=== PATIENT | male | born 1975 | race Caucasian/White ===

== ENCOUNTER 2020-06-08 21:57 | Emergency (ER) | payer SELFPAY ==
[~2020-06-08] VITALS: Ht 175.3 cm; Wt 137.0 kg
[~2020-06-08 21:57] MED LIST: IBP800T PO; PENI250T4 PO
--- NOTE | 2020-06-08 22:28 | ED General ---
General Chief Complaint: Cough/Cold/Flu Symptoms Stated Complaint: COUGH,SINUS Nursing Triage Note: AMBULATES TO ROOM #9 WITH C/O COUGH ET SINUS INFECTION. STATES X8WKS AGO AFTER CHOKING ON ALMONDS HE BEGAN TO EXPERIENCE DRY COUGH THAT HE CONTINUES TO EXPERIENCE TO THIS DAY. STATES X4 DAYS AGO HE WAS DIAGNOSED WITH A SINUS INFECTION ET PRESCRIBED ABX ET ALBUTEROL IH. EXPRESSES CONCERN REGARDING PERSISTANT COUGH X8 WKS. REFUSES NASAL SWAB FOR COVID-19 ON INFLUENZA. Nursing Sepsis Screen: No Definite Risk Source of Information: Patient Exam Limitations: No Limitations History of Present Illness Date Seen by Provider: Jun 08, 2020 Time Seen by Provider: 22:07 Initial Comments Here with report of cough that has been going on for 8 weeks. Diagnosed with pneumonia twice. Onset after choking a little bit on some almonds 8 weeks ago. He has been on antibiotics a few times as well as steroids twice. Completed steroids 4 days ago. Since then he has had increased sinus congestion and cough and tonight was worried more. Following with his doctor at the clinic and is due to follow-up with him again next week for further studies including possibility of a CAT scan. Denies fevers, nausea, vomiting or diarrhea. Denies dysuria or rash. Denies contact with COVID-19 and states he got tested 2 weeks ago and that was negative. 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 He declines COVID-19 evaluation or influenza evaluation because he states he cannot take the nasal swabs. Timing/Duration: Constant, Other (8 weeks) Severity: Moderate Associated Systoms: Cough; No Fever/Chills, No Headaches, No Nausea/Vomiting, No Shortness of Air, No Weakness Allergies and Home Medications Allergies Coded Allergies: calcium carbonate (Verified Allergy, Intermediate, HIVES, 05/03/12) Cephalexin Monohydrate (Verified Allergy, Unknown, 06/08/20) Penicillins (Verified Allergy, Unknown, 06/08/20) acetaminophen (Verified Allergy, Unknown, 06/08/20) azithromycin (Verified Allergy, Unknown, 06/08/20) benzocaine (Verified Allergy, Unknown, 06/08/20) lidocaine (Verified Allergy, Unknown, 06/08/20) mupirocin (Verified Allergy, Unknown, 06/08/20) mupirocin calcium (Verified Allergy, Unknown, 06/08/20) Home Medications Ibuprofen 800 Mg Tab, 800 MG PO TID PRN, (Reported) Penicillin V Potassium 250 Mg Tablet, 500 MG PO Q6HR, (Reported) Patient Home Medication List Home Medication List Reviewed: Yes Review of Systems Review of Systems Constitutional: No chills, No fever EENTM: nose congestion; No nose pain, No throat pain, No throat swelling Respiratory: cough; No short of breath Cardiovascular: No chest pain, No edema Gastrointestinal: No abdominal pain, No nausea, No vomiting Genitourinary: no symptoms reported Musculoskeletal: no symptoms reported All Other Systems Reviewed Negative Unless Noted: Yes Past Ftrqtye-Aoooxp-Sepdis Hx Past Med/Social Hx: Reviewed Nursing Past Med/Soc Hx Patient Social History Alcohol Use: Occasionally Uses Smoking Status: Never a Smoker Recent Infectious Disease Expo: No Past Medical History Surgeries: Yes Orthopedic (Knee and shoulder) Respiratory: Yes Chronic Bronchitis Cardiac: No Neurological: No Reproductive Disorders: No Sexually Transmitted Disease: No HIV/AIDS: No Gastrointestinal: No Musculoskeletal: No Endocrine: No Adverse Reaction/Blood Tranf: No Family Medical History Reviewed Nursing Family Hx Diabetes Physical Exam-Suspected Sepsis Physical Exam Vital Signs Vital Signs - First Documented 06/08/20 22:07 Temp 36.8 Pulse 90 Resp 20 B/P (MAP) 161/109 (126) Pulse Ox 98 O2 Delivery Room Air Capillary Refill : Less Than 3 Seconds Blood Pressure Mean: 126 Height, Weight, BMI Height: '" Weight: 360lbs. oz. [id number]; 44.00 BMI Method:Stated General Appearance: No Apparent Distress, WD/WN, Obese HEENT: PERRL/EOMI, Pharynx Normal, Other (Moderate bilateral nasal congestion with clear rhinorrhea) Neck: Non Tender, Supple Respiratory: Lungs Clear, Normal Breath Sounds Cardiovascular: No Murmur, Tachycardia Gastrointestinal: Non Tender, Soft Back: Normal Inspection, No CVA Tenderness, No Vertebral Tenderness Extremity: Normal Range of Motion, Non Tender, No Calf Tenderness, No Pedal Edema Neurologic/Psychiatric: Alert, Oriented x3 Skin: normal color, warm/dry Focused Exam Lactate Level 06/08/20 22:30: Lactic Acid Level 1.57 Lactic Acid Level Laboratory Tests Test 06/08/20 22:30 Lactic Acid Level 1.57 MMOL/L (0.50-2.00) Progress/Results/Core Measures Suspected Sepsis Recent Fever Within 48 Hours: No Infection Criteria Present: Documented Infection New/Unexplained Altered Menta: No Sepsis Screen: No Definite Risk SIRS Temperature: Pulse: 90 Respiratory Rate: 20 Laboratory Tests 06/08/20 22:30: White Blood Count 11.7H Blood Pressure 161 /109 Mean: 126 06/08/20 22:30: Lactic Acid Level 1.57 Laboratory Tests 06/08/20 22:30: Creatinine 1.00, INR Comment 0.9, Platelet Count 216, Total Bilirubin 0.4 Results/Orders Lab Results Laboratory Tests Test 06/08/20 22:30 Range/Units White Blood Count 11.7 H 4.3-11.0 10^3/uL Red Blood Count 6.17 H 4.30-5.52 10^6/uL Hemoglobin 16.2 13.3-17.7 g/dL Hematocrit 49 40-54 % Mean Corpuscular Volume 79 L 80-99 fL Mean Corpuscular Hemoglobin 26 25-34 pg Mean Corpuscular Hemoglobin Concent 33 32-36 g/dL Red Cell Distribution Width 13.2 10.0-14.5 % Platelet Count 216 130-400 10^3/uL Mean Platelet Volume 11.2 9.0-12.2 fL Immature Granulocyte % (Auto) 1 % Neutrophils (%) (Auto) 72 42-75 % Lymphocytes (%) (Auto) 21 12-44 % Monocytes (%) (Auto) 6 0-12 % Eosinophils (%) (Auto) 1 0-10 % Basophils (%) (Auto) 0 0-10 % Neutrophils # (Auto) 8.4 H 1.8-7.8 10^3/uL Lymphocytes # (Auto) 2.5 1.0-4.0 10^3/uL Monocytes # (Auto) 0.7 0.0-1.0 10^3/uL Eosinophils # (Auto) 0.1 0.0-0.3 10^3/uL Basophils # (Auto) 0.0 0.0-0.1 10^3/uL Immature Granulocyte # (Auto) 0.1 0.0-0.1 10^3/uL Prothrombin Time 12.6 12.2-14.7 SEC INR Comment 0.9 0.8-1.4 Activated Partial Thromboplast Time 27 24-35 SEC D-Dimer 0.36 0.00-0.49 UG/ML Sodium Level 130 L 135-145 MMOL/L Potassium Level 4.4 3.6-5.0 MMOL/L Chloride Level 97 L 98-107 MMOL/L Carbon Dioxide Level 21 21-32 MMOL/L Anion Gap 12 5-14 MMOL/L Blood Urea Nitrogen 10 7-18 MG/DL Creatinine 1.00 0.60-1.30 MG/DL Estimat Glomerular Filtration Rate > 60 BUN/Creatinine Ratio 10 Glucose Level 470 *H 70-105 MG/DL Lactic Acid Level 1.57 0.50-2.00 MMOL/L Calcium Level 9.2 8.5-10.1 MG/DL Corrected Calcium 9.3 8.5-10.1 MG/DL Total Bilirubin 0.4 0.1-1.0 MG/DL Aspartate Amino Transf (AST/SGOT) 13 5-34 U/L Alanine Aminotransferase (ALT/SGPT) 21 0-55 U/L Alkaline Phosphatase 87 40-136 U/L C-Reactive Protein High Sensitivity 1.82 H 0.00-0.50 MG/DL Total Protein 8.0 6.4-8.2 GM/DL Albumin 3.9 3.2-4.5 GM/DL Procalcitonin 0.04 <0.10 NG/ML My Orders Orders - RANJITH CASTAÑEDA MD Cbc With Automated Diff (06/08/20 22:20) Comprehensive Metabolic Panel (06/08/20 22:20) Blood Culture (06/08/20 22:20) Sputum Culture (06/08/20 22:20) Protime With Inr (06/08/20:20) Partial Thromboplastin Time (06/08/20:20) Chest 1 View, Ap/Pa Only (06/08/20 22:20) Ed Iv/Invasive Line Start (06/08/20 22:20) Vital Signs Adult Sepsis Patie Q15M (06/08/20 22:20) O2 (06/08/20 22:20) Remove Rings In Anticipation O (06/08/20 22:20) Lactic Acid Analyzer (06/08/20 22:20) Fibrin Degradation Products (06/08/20 22:20) Procalcitonin (Pct) (06/08/20 22:20) Hs C Reactive Protein (06/08/20 22:20) Ns Iv 1000 Ml (Sodium Chloride 0.9%) (06/09/20 00:00) Ct Chest W (06/09/20 00:01) Iohexol Injection (Omnipaque 350 Mg/Ml 1 (06/09/20 00:45) Received Contrast (Hold Metformin- Contr (06/09/20 00:45) Sodium Chloride Flush (Catheter Flush Sy (06/09/20 00:45) Ns (Ivpb) (Sodium Chloride 0.9% Ivpb Bag (06/09/20 00:45) Medications Given in ED Current Medications Medications Dose Ordered Sig/Janae Route Start Time Stop Time Status Last Admin Dose Admin Iohexol 100 ml ONCE ONCE IV 06/09/20 00:45 06/09/20 00:47 DC 06/09/20 00:46 75 ML Sodium Chloride 10 ml NEEDED PRN IV 06/09/20 00:45 06/09/20 00:47 10 ML Sodium Chloride 100 ml ONCE ONCE IV 06/09/20 00:45 06/09/20 00:47 DC 06/09/20 00:46 80 ML Sodium Chloride 1,000 ml @ 0 mls/hr Q0M ONCE IV 06/09/20 00:00 06/09/20 00:01 DC 06/09/20 01:11 0 MLS/HR Vital Signs/I&O 06/08/20 06/08/20 22:07 22:30 Temp 36.8 Pulse 90 Resp 20 B/P (MAP) 161/109 (126) Pulse Ox 98 O2 Delivery Room Air Room Air Capillary Refill : Less Than 3 Seconds Blood Pressure Mean: 126 Progress Note : Progress Note Seen and evaluated. We will initiate sepsis work-up minus UA studies as those are not needed on this patient. Patient refused influenza or COVID-19 testing. We will check CRP, D-dimer and procalcitonin for evaluation for pneumonia, pulmonary embolism and for other serious bacterial or viral infections. We will need to maintain patient in precautions since he does not want Covid testing. Monitor patient. 2348: Chest x-ray does show right lower lobe infiltrate. This is a regular appearing. We will get CT chest with contrast. Normal saline to follow. Monitor patient. 0130: CT complete and results noted. IV fluids are running. I have talked at length with the patient regarding several factors. First, the patient has findings of diabetes. Apparently this is known to the patient but he has not taken his Metformin. That was from information from the brother. Patient believes it may be related to steroid use. I believe this is actually diabetes and told him so and that he will need to take his medication. He was instructed in follow-up and has appointment on (tomorrow). Second, he has rather significant infiltrate noted on CT scan. This may be resolving pneumonia given the course and evaluation of the labs with low procalcitonin. If not improving over time, concerns for atypical type pneumonia would be had. He is currently on moxifloxacin which is an appropriate antibiotic. He is completing that course and has follow-up again tomorrow for this as well. He is suffering from some upper respiratory symptoms since being on steroids which may be allergy related. He will initiate appropriate allergy therapy and see if that helps improve his symptoms. I did offer admission which the patient has declined and would prefer to go home. This is reasonable given his labs but he does have to discuss this in follow-up. I will send a copy of the chart to the clinic for that appointment as well. Discharged home with return precautions. Patient verbalized understanding of instructions and agreement with plan. Diagnostic Imaging Diagonstic Imaging: Xray Plain Films/CT/US/NM/MRI: chest Comments Right lower lobe infiltrate Reviewed: Reviewed by Me Diagonstic Imaging: CT Plain Films/CT/US/NM/MRI: chest Comments Focal right lower lobe bronchiectasis with peribronchial thickening and a peripheral infiltrate/pneumonia Departure Impression Primary Impression: Right lower lobe pneumonia Qualified Codes: J18.9 - Pneumonia, unspecified organism Additional Impressions: Hyperglycemia due to type 2 diabetes mellitus Qualified Codes: E11.65 - Type 2 diabetes mellitus with hyperglycemia Seasonal allergies Disposition: 01 HOME, SELF-CARE Condition: Stable Departure-Patient Inst. Decision time for Depature: 01:34 Referrals: NO,LOCAL PHYSICIAN (PCP/Family) Primary Care Physician Patient Instructions: Type 2 Diabetes, Hyperglycemia, Adult (DC), Pneumonia, Adult (DC), Seasonal Allergies (DC) Add. Discharge Instructions: All discharge instructions reviewed with patient and/or family. Voiced understanding. You may take [id number] Claritin or the generic loratadine daily per package directions. You may use Afrin nasal spray or the generic, 12-hour relief, 2 sprays to each nostril twice daily for 3 days only and then stop. Do not take more than 3 days. Continue your antibiotics as prescribed. It is essential that you keep your follow-up appointment on as scheduled and discuss both the pneumonia and the diabetes. A copy of the chart was sent to the clinic to assist in evaluation. Drink plenty of fluids and avoid sugars in your diet. Return for worse pain, fever, vomiting, weakness, breathing problems or other concerns as needed. Copy Copies To 1: VINICIO BOOKER MD, TIMOTHY D MD Jun 08, 2020 22:28
[2020-06-08 22:45] LABS: BASOPHILS % (AUTO) 0 % (0-10); EOSINOPHILS # (AUTO) 0.1 10^3/uL (0.0-0.3); EOSINOPHILS % (AUTO) 1 % (0-10); HEMATOCRIT 49 % (40-54); HEMOGLOBIN 16.2 g/dL (13.3-17.7); LYMPHOCYTES # (AUTO) 2.5 10^3/uL (1.0-4.0); LYMPHOCYTES % (AUTO) 21 % (12-44); MEAN CORPUSCULAR HEMOGLOBIN 26 pg (25-34); MEAN CORPUSCULAR HGB CONC 33 g/dL (32-36); MEAN CORPUSCULAR VOLUME 79 fL (80-99); MEAN PLATELET VOLUME 11.2 fL (9.0-12.2); MONOCYTES # (AUTO) 0.7 10^3/uL (0.0-1.0); MONOCYTES % (AUTO) 6 % (0-12); NEUTROPHILS # (AUTO) 8.4 10^3/uL (1.8-7.8); NEUTROPHILS % (AUTO) 72 % (42-75); PLATELET COUNT 216 10^3/uL (130-400); WHITE BLOOD COUNT 11.7 10^3/uL (4.3-11.0)
[2020-06-08 23:09] LABS: ALBUMIN 3.9 GM/DL (3.2-4.5); CHLORIDE 97 MMOL/L (98-107); POTASSIUM 4.4 MMOL/L (3.6-5.0); SODIUM 130 MMOL/L (135-145)
[2020-06-08 23:10] LABS: CALCIUM 9.2 MG/DL (8.5-10.1)
[2020-06-08 23:12] LABS: FIBRIN DEGRADATION PRODUCTS 0.36 UG/ML (0.00-0.49); INR 0.9 (0.8-1.4); PROTHROMBIN TIME PATIENT 12.6 SEC (12.2-14.7)
[2020-06-08 23:13] LABS: BILIRUBIN,TOTAL 0.4 MG/DL (0.1-1.0); CARBON DIOXIDE 21 MMOL/L (21-32)
[2020-06-08 23:15] LABS: ALKALINE PHOSPHATASE 87 U/L (40-136)
[2020-06-08 23:16] LABS: GFR ESTIMATED > 60; GLUCOSE 470 MG/DL (70-105)
[2020-06-08 23:17] LABS: BUN/CREATININE RATIO 10
[2020-06-08 23:18] LABS: ALANINE AMINOTRANSFERASE 21 U/L (0-55)
[2020-06-09] MEDS ORDERED: NS IV 1000 ML 1,000 ML IV ONE
[2020-06-09] MEDS ORDERED: NS 100 ML (IVPB) BAG IV ONE (00:45)
[2020-06-09] MEDS ORDERED: IOHEXOL 350 MG/ML 100 ML (OMNIPAQUE 350) VIAL IV ONE (00:45)
[2020-06-09] MEDS ORDERED: CATHETER FLUSH 10 ML SYR IV PRN (00:45)
[2020-06-09] MEDS ORDERED: HOLD METFORMIN - RECEIVED CONTRAST 20 ML VIAL IV SCH (00:45)
[2020-06-09 01:50] VITALS: BP 133/85
--- NOTE | 2020-06-09 07:52 | Diagnostic Imaging Report ---
PROCEDURE: CT chest with contrast only. TECHNIQUE: Multiple contiguous axial images were obtained through the chest after administration of intravenous contrast. Auto Exposure Controls were utilized during the CT exam to meet ALARA standards for radiation dose reduction. INDICATION: Cough for 8 weeks. Abnormal chest x-ray with right lower lobe atelectasis and/or infiltrate There is right basilar atelectasis and infiltrate. The right upper lobe and the left lung are clear. There is no effusion or pneumothorax. There is no mediastinal mass or hemorrhage. There is no aortic aneurysm or dissection. There is no pulmonary embolus. IMPRESSION: Right lower lobe pneumonia with some volume loss. There is no pulmonary embolus. Dictated by: Dictated on workstation # [id number]
--- NOTE | 2020-06-09 08:27 | Diagnostic Imaging Report ---
INDICATION: Dry cough and sepsis. TIME OF EXAM: 10:59 PM No prior studies are available for comparison. FINDINGS: Heart size is normal. There is some infiltrate or atelectasis in the right lung base. Otherwise lungs are clear. No effusion or pneumothorax is seen. IMPRESSION: Right basilar infiltrate or atelectasis. Dictated by: Dictated on workstation # [id number]
== END 2020-06-09 01:50 | disposition home or self-care (01) ==
LOC: EDUNIT# 21:57 → ER 21:59
DX: J18.1 Lobar pneumonia, unspecified organism (principal); E11.65 Type 2 diabetes mellitus with hyperglycemia; J30.2 Other seasonal allergic rhinitis; I10 Essential (primary) hypertension; E66.9 Obesity, unspecified; Z68.41 Body mass index [BMI] 40.0-44.9, adult; Z88.0 Allergy status to penicillin; Z88.1 Allergy status to other antibiotic agents; Z88.8 Allergy status to other drugs, medicaments and biological substances; Z83.3 Family history of diabetes mellitus
CPT/HCPCS: 36415; 71045; 71260; 80053; 82962; 83605; 84145; 85025; 85379; 85610; 85730; 86141; 87040

== ENCOUNTER 2020-06-11 15:29 | Observation (INO) | payer SELFPAY ==
[~2020-06-11] VITALS: Ht 175.3 cm; Wt 13.5 kg
[2020-06-11 16:48] LABS: BASOPHILS % (AUTO) 0 % (0-10); EOSINOPHILS # (AUTO) 0.1 10^3/uL (0.0-0.3); EOSINOPHILS % (AUTO) 1 % (0-10); HEMATOCRIT 51 % (40-54); HEMOGLOBIN 16.8 g/dL (13.3-17.7); LYMPHOCYTES # (AUTO) 1.7 10^3/uL (1.0-4.0); LYMPHOCYTES % (AUTO) 11 % (12-44); MEAN CORPUSCULAR HEMOGLOBIN 27 pg (25-34); MEAN CORPUSCULAR HGB CONC 33 g/dL (32-36); MEAN CORPUSCULAR VOLUME 80 fL (80-99); MEAN PLATELET VOLUME 10.9 fL (9.0-12.2); MONOCYTES # (AUTO) 0.9 10^3/uL (0.0-1.0); MONOCYTES % (AUTO) 6 % (0-12); NEUTROPHILS # (AUTO) 12.8 10^3/uL (1.8-7.8); NEUTROPHILS % (AUTO) 82 % (42-75); PLATELET COUNT 248 10^3/uL (130-400); WHITE BLOOD COUNT 15.6 10^3/uL (4.3-11.0)
[2020-06-11 16:52] LABS: CHLORIDE 98 MMOL/L (98-107); POTASSIUM 4.2 MMOL/L (3.6-5.0)
[2020-06-11 16:53] LABS: SODIUM 135 MMOL/L (135-145)
[2020-06-11 16:54] LABS: CALCIUM 9.6 MG/DL (8.5-10.1)
[2020-06-11 16:55] LABS: GLUCOSE 359 MG/DL (70-105); TOTAL PROTEIN 8.5 GM/DL (6.4-8.2)
[2020-06-11 16:56] LABS: CARBON DIOXIDE 21 MMOL/L (21-32)
[2020-06-11 16:57] LABS: BILIRUBIN,TOTAL 0.5 MG/DL (0.1-1.0)
[2020-06-11 16:58] LABS: ALKALINE PHOSPHATASE 83 U/L (40-136)
[2020-06-11 16:59] LABS: CREATININE SERUM 1.04 MG/DL (0.60-1.30); GFR ESTIMATED > 60
[2020-06-11 17:00] LABS: BUN/CREATININE RATIO 13
[2020-06-11 17:02] LABS: ALANINE AMINOTRANSFERASE 32 U/L (0-55)
[2020-06-11 17:08] LABS: BAND NEUTROPHILS 0 %; BASOPHILS % (MANUAL) 0 %; EOSINOPHILS % (MANUAL) 0 %; LYMPHOCYTES % (MANUAL) 12 %; MONOCYTES % (MANUAL) 6 %; NEUTROPHILS % (MANUAL) 82 %; RBC MORPH NORMAL
--- NOTE | 2020-06-11 17:21 | Diagnostic Imaging Report ---
EXAMINATION: Chest 1 view. HISTORY: Sepsis. Cough. Pneumonia 8 weeks ago. COMPARISON: 06/08/2020. FINDINGS: The lung volumes are normal. There has been interval decrease in patchy opacities in the right lung base. No large pleural effusion or pneumothorax is seen. The cardiomediastinal silhouette is normal in size and contour. No acute osseous abnormality is seen. IMPRESSION: Improving patchy opacities in the right lung base, likely representing improving pneumonia. Dictated by: Dictated on workstation # [id number]
[2020-06-11] MEDS ORDERED: MEROPENEM 1,000 MG in WATER (STERILE) FOR INJECTION 20 ML IV ONE (17:45)
[2020-06-11] MEDS ORDERED: LACTATED RINGERS 1,000 ML IV ONE (18:00)
--- NOTE | 2020-06-11 18:50 | ED General ---
General Chief Complaint: Cough/Cold/Flu Symptoms Stated Complaint: COUGH Nursing Triage Note: pt presents to ER today for repeat visit (was seen sunday) for prolonged cough and diagnosis of pneumonia 8 weeks ago. Pt is a pt at [facility] and has had out pt xrays, cts, and a pervious "spit covid test". Pt was seen in this ER 3 days ago (06/08/2020) when his illness got worse. Provider wanted to covid test him and admit pt but pt refused. Pt returns today because he has changed his mind about wanting to be admitted, states he "is tired of being sick and just wants to get better" Nursing Sepsis Screen: No Definite Risk Source of Information: Patient, Old Records Exam Limitations: No Limitations History of Present Illness Date Seen by Provider: Jun 11, 2020 Time Seen by Provider: 16:10 Initial Comments This 45-year-old gentleman presents to the emergency room with complaints of persistent cough for about 2 months. He states this started when he choked on a handful of almonds. He has been on multiple rounds of antibiotics, steroids, and inhaled treatments, but symptoms persist. He was last seen in this ER on June 08 and was offered admission. He declined at that time. He denies fever but still has persistent cough and now has worsening congestion and nasal drainage. He consents to a Covid screening today. He appeared to have a right lower lobe infiltrate on imaging on the . Allergies and Home Medications Allergies Coded Allergies: calcium carbonate (Verified Allergy, Intermediate, HIVES, 05/03/12) Cephalexin Monohydrate (Verified Allergy, Unknown, 06/08/20) Penicillins (Verified Allergy, Unknown, 06/08/20) acetaminophen (Verified Allergy, Unknown, 06/08/20) azithromycin (Verified Allergy, Unknown, 06/08/20) benzocaine (Verified Allergy, Unknown, 06/08/20) lidocaine (Verified Allergy, Unknown, 06/08/20) mupirocin (Verified Allergy, Unknown, 06/08/20) mupirocin calcium (Verified Allergy, Unknown, 06/08/20) Home Medications Ibuprofen 800 Mg Tab, 800 MG PO TID PRN, (Reported) Penicillin V Potassium 250 Mg Tablet, 500 MG PO Q6HR, (Reported) Patient Home Medication List Home Medication List Reviewed: Yes Review of Systems Review of Systems Constitutional: no symptoms reported EENTM: see HPI Respiratory: see HPI Cardiovascular: no symptoms reported Gastrointestinal: no symptoms reported Genitourinary: no symptoms reported Musculoskeletal: no symptoms reported Skin: no symptoms reported Psychiatric/Neurological: No Symptoms Reported Hematologic/Lymphatic: No Symptoms Reported Immunological/Allergic: no symptoms reported Past Izxlgvv-Jgpzfs-Jmrarh Hx Past Med/Social Hx: Reviewed Nursing Past Med/Soc Hx Patient Social History Alcohol Use: Past History Number of Drinks Today: 2 Alcohol Beverage of Choice: Beer Smoking Status: Never a Smoker 2nd Hand Smoke Exposure: No Recent Infectious Disease Expo: No Recent Hopitalizations: No Seasonal Allergies Seasonal Allergies: No Past Medical History Surgeries: Yes Orthopedic, Vasectomy Respiratory: Yes Pneumonia, Chronic Bronchitis Currently Using CPAP: No Currently Using BIPAP: No Cardiac: No Reproductive Disorders: No Sexually Transmitted Disease: No HIV/AIDS: No Genitourinary: No Gastrointestinal: No Musculoskeletal: No Endocrine: No Diabetes, Non-Insulin dep HEENT: No Cancer: No Psychosocial: No Integumentary: No Blood Disorders: No Adverse Reaction/Blood Tranf: No Family Medical History Diabetes Physical Exam-Suspected Sepsis Physical Exam Vital Signs Vital Signs - First Documented 06/11/20 15:45 Temp 37.7 Pulse 102 Resp 20 B/P (MAP) 155/88 (110) O2 Delivery Room Air Capillary Refill : Less Than 3 Seconds Blood Pressure Mean: 110 Height, Weight, BMI Height: '" Weight: 360lbs. oz. 163.711709sy; 43.00 BMI Method:Stated General Appearance: No Apparent Distress, WD/WN HEENT: PERRL/EOMI, TMs Normal, Normal ENT Inspection, Pharynx Normal Neck: Normal Inspection; No JVD Respiratory: Lungs Clear, Normal Breath Sounds, No Accessory Muscle Use, No Respiratory Distress, Other (Prolonged expiratory phase) Cardiovascular: No Edema, No Murmur, Tachycardia Gastrointestinal: Non Tender, Soft Extremity: Normal Inspection, No Pedal Edema Neurologic/Psychiatric: Alert, Oriented x3, No Motor/Sensory Deficits, Normal Mood/Affect, creel hand II-XII Norm as Tested Skin: normal color, warm/dry Focused Exam Lactate Level 06/11/20 16:27: Lactic Acid Level 1.48 Lactic Acid Level Laboratory Tests Test 06/11/20 16:27 Lactic Acid Level 1.48 MMOL/L (0.50-2.00) Progress/Results/Core Measures Suspected Sepsis Recent Fever Within 48 Hours: Yes Infection Criteria Present: None New/Unexplained Altered Menta: No Sepsis Screen: No Definite Risk SIRS Temperature: Pulse: 102 Respiratory Rate: 20 Laboratory Tests 06/11/20 16:27: White Blood Count 15.6H Blood Pressure 155 /88 Mean: 110 06/11/20 16:27: Lactic Acid Level 1.48 Laboratory Tests 06/11/20 16:27: Creatinine 1.04, Platelet Count 248, Total Bilirubin 0.5 Results/Orders Lab Results Laboratory Tests Test 06/11/20 16:10 06/11/20 16:27 Range/Units Coronavirus 2019 (NANCY) Not Detected Not Detecte White Blood Count 15.6 H 4.3-11.0 10^3/uL Red Blood Count 6.33 H 4.30-5.52 10^6/uL Hemoglobin 16.8 13.3-17.7 g/dL Hematocrit 51 40-54 % Mean Corpuscular Volume 80 80-99 fL Mean Corpuscular Hemoglobin 27 25-34 pg Mean Corpuscular Hemoglobin Concent 33 32-36 g/dL Red Cell Distribution Width 13.2 10.0-14.5 % Platelet Count 248 130-400 10^3/uL Mean Platelet Volume 10.9 9.0-12.2 fL Immature Granulocyte % (Auto) 1 % Neutrophils (%) (Auto) 82 H 42-75 % Lymphocytes (%) (Auto) 11 L 12-44 % Monocytes (%) (Auto) 6 0-12 % Eosinophils (%) (Auto) 1 0-10 % Basophils (%) (Auto) 0 0-10 % Neutrophils # (Auto) 12.8 H 1.8-7.8 10^3/uL Lymphocytes # (Auto) 1.7 1.0-4.0 10^3/uL Monocytes # (Auto) 0.9 0.0-1.0 10^3/uL Eosinophils # (Auto) 0.1 0.0-0.3 10^3/uL Basophils # (Auto) 0.0 0.0-0.1 10^3/uL Immature Granulocyte # (Auto) 0.1 0.0-0.1 10^3/uL Neutrophils % (Manual) 82 % Lymphocytes % (Manual) 12 % Monocytes % (Manual) 6 % Eosinophils % (Manual) 0 % Basophils % (Manual) 0 % Band Neutrophils 0 % Blood Morphology Comment NORMAL Sodium Level 135 135-145 MMOL/L Potassium Level 4.2 3.6-5.0 MMOL/L Chloride Level 98 98-107 MMOL/L Carbon Dioxide Level 21 21-32 MMOL/L Anion Gap 16 H 5-14 MMOL/L Blood Urea Nitrogen 13 7-18 MG/DL Creatinine 1.04 0.60-1.30 MG/DL Estimat Glomerular Filtration Rate > 60 BUN/Creatinine Ratio 13 Glucose Level 359 H 70-105 MG/DL Lactic Acid Level 1.48 0.50-2.00 MMOL/L Calcium Level 9.6 8.5-10.1 MG/DL Corrected Calcium 9.6 8.5-10.1 MG/DL Total Bilirubin 0.5 0.1-1.0 MG/DL Aspartate Amino Transf (AST/SGOT) 23 5-34 U/L Alanine Aminotransferase (ALT/SGPT) 32 0-55 U/L Alkaline Phosphatase 83 40-136 U/L C-Reactive Protein High Sensitivity 3.56 H 0.00-0.50 MG/DL Total Protein 8.5 H 6.4-8.2 GM/DL Albumin 4.0 3.2-4.5 GM/DL Procalcitonin 0.05 <0.10 NG/ML Micro Results Microbiology 06/11/20 Influenza Types A,B Antigen (CARMEN) - Final, Complete My Orders Orders - MATTEO LINDSAY MD Cbc With Automated Diff (06/11/20 16:16) Comprehensive Metabolic Panel (06/11/20 16:16) Blood Culture (06/11/20 16:16) Sputum Culture (06/11/20 16:16) Chest 1 View, Ap/Pa Only (06/11/20 16:16) Ed Iv/Invasive Line Start (06/11/20 16:16) Vital Signs Adult Sepsis Patie Q15M (06/11/20 16:16) Remove Rings In Anticipation O (06/11/20 16:16) Lactic Acid Analyzer (06/11/20 16:16) Influenza A And B Antigens (06/11/20 16:16) Procalcitonin (Pct) (06/11/20 16:16) Hs C Reactive Protein (06/11/20 16:16) Covid 19 Inhouse Test (06/11/20 16:16) Manual Differential (06/11/20 16:27) Meropenem (Merrem 1000 Mg) (06/11/20 17:45) Lactated Ringers (Lr 1000 Ml Iv Solution (06/11/20 18:00) Medications Given in ED Current Medications Medications Dose Ordered Sig/Janae Route Start Time Stop Time Status Last Admin Dose Admin Lactated Ringer's 1,000 ml @ 0 mls/hr Q0M ONCE IV 06/11/20 18:00 06/11/20 18:01 DC 06/11/20 18:33 999 MLS/HR Meropenem 1000 mg/ Sterile Water 20 ml @ 240 mls/hr ONCE ONCE IV 06/11/20 17:45 06/11/20 17:49 DC 06/11/20 18:33 240 MLS/HR Vital Signs/I&O 06/11/20 06/11/20 15:45 15:45 Temp 37.7 Pulse 102 Resp 20 B/P (MAP) 155/88 (110) O2 Delivery Room Air Capillary Refill : Less Than 3 Seconds Blood Pressure Mean: 110 Progress Note : Progress Note Patient was seen and examined. Labs were evaluated. Chest x-ray was obtained and compared with prior. Patient has increasing WBC and CRP. Right lower lobe infiltrate is persistent as are symptoms. Patient seems to be failing outpatient therapy. He technically meets septic criteria with elevated heart rate and leukocytosis. He is agreeable to admission. Meropenem is being used due to his allergy profile. Aspiration on almonds may have been the inciting trigger for pneumonia. I discussed the case with Dr. Henley. If antibiotics alone do not sufficiently treat his pneumonia, bronchoscopy next week may be an option. Diagnostic Imaging Diagonstic Imaging: Xray Plain Films/CT/US/NM/MRI: chest Comments Chest x-ray viewed by me and report reviewed. Compared with prior. See report below: NAME: JAE GENAO [facility] REC#: [id number] PT STATUS: REG ER : 1975 PHYSICIAN: MATTEO LINDSAY MD ADMIT DATE: 06/11/20/ER Signed Date of Exam:06/11/20 CHEST 1 VIEW, AP/PA ONLY EXAMINATION: Chest 1 view. HISTORY: Sepsis. Cough. Pneumonia 8 weeks ago. COMPARISON: 06/08/2020. FINDINGS: The lung volumes are normal. There has been interval decrease in patchy opacities in the right lung base. No large pleural effusion or pneumothorax is seen. The cardiomediastinal silhouette is normal in size and contour. No acute osseous abnormality is seen. IMPRESSION: Improving patchy opacities in the right lung base, likely representing improving pneumonia. Dictated by: Dictated on workstation # [id number] Dict: 06/11/201715 Trans: 06/11/201721 [facility] [id number] Interpreted by: LUISANA GARDNER DO Electronically signed by: LUISANA GARDNER DO 06/11/201721 Departure Communication (Admissions) Time/Spoke to Admitting Phy: 17:50 Dr. Lew Time/Spoke to Consulting Phy: 17:32 Dr. Henley Impression Primary Impression: Sepsis Qualified Codes: A41.9 - Sepsis, unspecified organism Additional Impressions: Right lower lobe pneumonia Qualified Codes: J18.9 - Pneumonia, unspecified organism Hyperglycemia Disposition: 09 ADMITTED INPATIENT Condition: Improved Admissions Decision to Admit Reason: Admit from ER (General) Decision to Admit/Date: Jun 11, 2020 Time/Decision to Admit Time: 17:35 Departure-Patient Inst. Referrals: NO,LOCAL PHYSICIAN (PCP/Family) Primary Care Physician MATTEO LINDSAY MD Jun 11, 2020 18:49
[2020-06-11 19:54] VITALS: BP 150/90
[2020-06-11] MEDS ORDERED: CATHETER FLUSH 10 ML SYR IV PRN (20:15)
[2020-06-11] MEDS ORDERED: RT-ALBUTEROL/IPRATROPIUM 3 ML (DUONEB) VIAL INH PRN (20:15)
[2020-06-11] MEDS ORDERED: ONDANSETRON 4 MG/2 ML (SDV) Z0FRAN IV PRN (20:15)
[2020-06-11 21:00] VITALS: BP 132/76
[2020-06-11] MEDS: LACTATED RINGERS 1,000 ML IV SCH (22:01)
[2020-06-11] MEDS: inSUlin ASPART (NovoLOG) 1 UNIT/0.01 ML (CHARGE PER UNIT) SC SCH (22:07)
[2020-06-12] VITALS: BP 122/60
[2020-06-12] MEDS: MEROPENEM 1,000 MG/SWFI 20 ML IV PUSH IV SCH ×4 (01:01→09:15)
[2020-06-12 04:00] VITALS: BP 140/66
[2020-06-12] MEDS: LACTATED RINGERS 1,000 ML IV SCH ×2 (04:18→09:38)
[2020-06-12 08:00] VITALS: BP 137/69
[2020-06-12] MEDS ORDERED: metFORMIN 500 MG (GLUCOPHAGE) TAB PO SCH (08:00)
[2020-06-12 08:28] LABS: BASOPHILS % (AUTO) 0 % (0-10); EOSINOPHILS # (AUTO) 0.1 10^3/uL (0.0-0.3); EOSINOPHILS % (AUTO) 1 % (0-10); HEMATOCRIT 46 % (40-54); LYMPHOCYTES # (AUTO) 2.1 10^3/uL (1.0-4.0); LYMPHOCYTES % (AUTO) 25 % (12-44); MEAN CORPUSCULAR HEMOGLOBIN 26 pg (25-34); MEAN CORPUSCULAR HGB CONC 32 g/dL (32-36); MEAN CORPUSCULAR VOLUME 81 fL (80-99); MEAN PLATELET VOLUME 11.2 fL (9.0-12.2); MONOCYTES # (AUTO) 0.6 10^3/uL (0.0-1.0); MONOCYTES % (AUTO) 8 % (0-12); NEUTROPHILS # (AUTO) 5.5 10^3/uL (1.8-7.8); NEUTROPHILS % (AUTO) 66 % (42-75); PLATELET COUNT 199 10^3/uL (130-400); WHITE BLOOD COUNT 8.4 10^3/uL (4.3-11.0)
[2020-06-12 08:40] LABS: BUN/CREATININE RATIO 13; CALCIUM 8.6 MG/DL (8.5-10.1); CARBON DIOXIDE 19 MMOL/L (21-32); CHLORIDE 104 MMOL/L (98-107); CREATININE SERUM 0.69 MG/DL (0.60-1.30); GFR ESTIMATED > 60; GLUCOSE 176 MG/DL (70-105); POTASSIUM 4.1 MMOL/L (3.6-5.0); SODIUM 138 MMOL/L (135-145)
[2020-06-12] MEDS ORDERED: PANTOPRAZOLE 40 MG (PROTONIX) TAB PO SCH (09:00)
[2020-06-12] MEDS: inSUlin ASPART (NovoLOG) 1 UNIT/0.01 ML (CHARGE PER UNIT) SC SCH ×2 (09:15→10:35)
[2020-06-12] MEDS ORDERED: LEVO750T39 PO (10:51)
[2020-06-12] MEDS ORDERED: METF-399 PO (10:56)
--- NOTE | 2020-06-12 11:37 | Discharge Summary ---
Discharge Summary Hospital Course Was the Problem List Reviewed?: Yes Problems/Dx: (1) Sepsis Status: Acute Qualifiers: Qualified Codes: A41.9 - Sepsis, unspecified organism (2) Right lower lobe pneumonia Status: Acute Qualifiers: Qualified Codes: J18.9 - Pneumonia, unspecified organism (3) Chronic cough Status: Acute (4) Hyperglycemia due to type 2 diabetes mellitus Status: Acute (5) Morbid obesity Status: Chronic Hospital Course Date of Admission: Jun 11, 2020 at 19:08 Admission Diagnosis : Sepsis due to pneumonia Family Physician/Provider: Inés,Local Physician Date of Discharge: 06/12/20 Discharge Diagnosis: Sepsis due to pneumonia Hospital Course: Kaden Farrell is a 45-year-old male who follows at [facility] with [facility] type 2 diabetes mellitus, morbid obesity, chronic cough, who presented with cough and was admitted with sepsis due to pneumonia. He was started on IV antibiotics and his cough improved slightly. He did not have any fevers or shortness of breath. He was not requiring any supplemental oxygen. He was transitioned to oral antibiotics and discharged home in stable condition. If his cough and hoarseness persist, further evaluation may be required with pulmonology and ENT. He should follow-up with his primary care physician at [facility] in about a week. Labs and Pending Lab Test: Laboratory Tests 06/11/20 16:10: Coronavirus 2019 (NANCY) Not Detected 06/11/20 16:27: White Blood Count 15.6H, Red Blood Count 6.33H, Hemoglobin 16.8, Hematocrit 51, Mean Corpuscular Volume 80, Mean Corpuscular Hemoglobin 27, Mean Corpuscular Hemoglobin Concent 33, Red Cell Distribution Width 13.2, Platelet Count 248, Mean Platelet Volume 10.9, Immature Granulocyte % (Auto) 1, Neutrophils (%) (Auto) 82H, Lymphocytes (%) (Auto) 11L, Monocytes (%) (Auto) 6, Eosinophils (%) (Auto) 1, Basophils (%) (Auto) 0, Neutrophils # (Auto) 12.8H, Lymphocytes # (Auto) 1.7, Monocytes # (Auto) 0.9, Eosinophils # (Auto) 0.1, Basophils # (Auto) 0.0, Immature Granulocyte # (Auto) 0.1, Neutrophils % (Manual) 82, Lymphocytes % (Manual) 12, Monocytes % (Manual) 6, Eosinophils % (Manual) 0, Basophils % (Manual) 0, Band Neutrophils 0, Blood Morphology Comment NORMAL, Sodium Level 135, Potassium Level 4.2, Chloride Level 98, Carbon Dioxide Level 21, Anion Gap 16H, Blood Urea Nitrogen 13, Creatinine 1.04, Estimat Glomerular Filtration Rate > 60, BUN/Creatinine Ratio 13, Glucose Level 359H, Lactic Acid Level 1.48, Calcium Level 9.6, Corrected Calcium 9.6, Total Bilirubin 0.5, Aspartate Amino Transf (AST/SGOT) 23, Alanine Aminotransferase (ALT/SGPT) 32, Alkaline Phosphatase 83, C-Reactive Protein High Sensitivity 3.56H, Total Protein 8.5H, Albumin 4.0, Procalcitonin 0.05 06/11/20 22:03: Glucometer 279H 06/12/20 08:07: White Blood Count 8.4, Red Blood Count 5.72H, Hemoglobin 15.0, Hematocrit 46, Mean Corpuscular Volume 81, Mean Corpuscular Hemoglobin 26, Mean Corpuscular Hemoglobin Concent 32, Red Cell Distribution Width 13.2, Platelet Count 199, Mean Platelet Volume 11.2, Immature Granulocyte % (Auto) 1, Neutrophils (%) (Auto) 66, Lymphocytes (%) (Auto) 25, Monocytes (%) (Auto) 8, Eosinophils (%) (Auto) 1, Basophils (%) (Auto) 0, Neutrophils # (Auto) 5.5, Lymphocytes # (Auto) 2.1, Monocytes # (Auto) 0.6, Eosinophils # (Auto) 0.1, Basophils # (Auto) 0.0, Immature Granulocyte # (Auto) 0.1, Sodium Level 138, Potassium Level 4.1, Chloride Level 104, Carbon Dioxide Level 19L, Anion Gap 15H, Blood Urea Nitrogen 9, Creatinine 0.69, Estimat Glomerular Filtration Rate > 60, BUN/Creatinine Ratio 13, Glucose Level 176H, Calcium Level 8.6, Procalcitonin 0.04, Mean Blood Glucose [Pending], Hemoglobin A1c [Pending], Thyroid Stimulating Hormone (TSH) 0.91 06/12/20 09:25: Glucometer 286H Microbiology 06/11/20 Influenza Types A,B Antigen (CARMEN) - Final, Complete Home Meds Active Metformin HCl 1,000 Mg Tablet 1,000 Mg PO BID WITH MEALS 30 Days Levofloxacin 750 Mg Tablet 750 Mg PO DAILY 6 Days Reported Motrin (Ibuprofen) 800 Mg Tab 800 Mg PO TID PRN Assessment/Pt Instructions Take medications as prescribed. Complete your course of antibiotics even if you are feeling better. If your symptoms persist despite the antibiotics, further work-up will be needed. Follow-up with your primary care physician. Return with worsening shortness of breath or if you feel like you are getting worse. Discharge Planning: <30 minutes discharge planning Discharge Instructions Discharge Diet: ADA Diet Activity as Tolerated: Yes Discharge Physical Examination Vital Signs Vital Signs Date Time Temp Pulse Resp B/P (MAP) Pulse Ox O2 Delivery O2 Flow Rate FiO2 06/12/20 08:00 96 Room Air 06/12/20 08:00 35.8 72 20 137/69 (91) 06/11/20 19:54 21 General Appearance: No Apparent Distress, Obese HEENT: PERRL/EOMI, Pharynx Normal Respiratory: Lungs Clear, Normal Breath Sounds, No Respiratory Distress Cardiovascular: Regular Rate, Rhythm, No Edema, No Murmur Gastrointestinal: Normal Bowel Sounds, Non Tender, Soft Extremity: Normal Inspection, Non Tender, No Pedal Edema Skin: Normal Color, Warm/Dry Neurologic/Psychiatric: Alert, Oriented x3, No Motor/Sensory Deficits, Normal Mood/Affect Allergies: Coded Allergies: calcium carbonate (Verified Allergy, Intermediate, HIVES, 05/03/12) Cephalexin Monohydrate (Verified Allergy, Unknown, 06/08/20) Penicillins (Verified Allergy, Unknown, 06/08/20) acetaminophen (Verified Allergy, Unknown, 06/08/20) azithromycin (Verified Allergy, Unknown, 06/08/20) benzocaine (Verified Allergy, Unknown, 06/08/20) lidocaine (Verified Allergy, Unknown, 06/08/20) mupirocin (Verified Allergy, Unknown, 06/08/20) mupirocin calcium (Verified Allergy, Unknown, 06/08/20) Copy Copies To 1: [facility] [place] [place] Discharge Summary Date of Admission Jun 11, 2020 at 19:08 Date of Discharge Discharge Date: Jun 12, 2020 Discharge Time: 11:36 Admission Diagnosis Sepsis due to pneumonia Discharge Diagnosis (1) Sepsis Status: Acute Qualifiers: Qualified Codes: A41.9 - Sepsis, unspecified organism (2) Right lower lobe pneumonia Status: Acute Qualifiers: Qualified Codes: J18.9 - Pneumonia, unspecified organism (3) Chronic cough Status: Acute (4) Hyperglycemia due to type 2 diabetes mellitus Status: Acute (5) Morbid obesity Status: Chronic (6) Alopecia areata Status: Acute WALESKA MIXON MD Jun 12, 2020 11:37
== END 2020-06-12 11:30 | disposition home or self-care (01) ==
LOC: EDUNIT# 15:29 → ER 15:31 → 4TH 19:08 → INTOOBSV 19:08
PROVIDERS: ADMIT Internal Medicine; ATTEND Internal Medicine
DX: A41.9 Sepsis, unspecified organism (principal); J18.1 Lobar pneumonia, unspecified organism; E11.65 Type 2 diabetes mellitus with hyperglycemia; E66.01 Morbid (severe) obesity due to excess calories; L63.9 Alopecia areata, unspecified; J42 Unspecified chronic bronchitis; Z88.0 Allergy status to penicillin; Z88.8 Allergy status to other drugs, medicaments and biological substances; Z88.4 Allergy status to anesthetic agent; Z88.1 Allergy status to other antibiotic agents; Z79.2 Long term (current) use of antibiotics; Z79.1 Long term (current) use of non-steroidal anti-inflammatories (NSAID); Z98.52 Vasectomy status; Z68.41 Body mass index [BMI] 40.0-44.9, adult; Z20.822 Contact with and (suspected) exposure to COVID-19
CPT/HCPCS: 71045; 80048; 80053; 82962 ×2; 83036; 83605; 84145 ×2; 84443; 85007; 85025; 85027; 86141; 87040; 87070; 87205; 87804; 94664; 99284; U0002; 36415; 87635; G0378

== ENCOUNTER 2020-06-26 19:19 | Emergency (ER) | payer SELFPAY ==
[~2020-06-26 19:19] MED LIST changes: +LEVO750T39 PO; +METF-399 PO
== END 2020-06-26 19:40 | disposition left against medical advice (07) ==
LOC: EDUNIT# 19:19 → ER 19:22
DX: R50.9 Fever, unspecified (principal); R07.9 Chest pain, unspecified; R05 Cough

== ENCOUNTER 2021-10-29 08:36 | Emergency (ER) | payer OTHER ==
[~2021-10-29] VITALS: Ht 172.7 cm; Wt 133.8 kg
[~2021-10-29 08:36] MED LIST changes: +LEVO750T PO; -LEVO750T39 PO
[2021-10-29] MEDS ORDERED: methylPREDNISolone 125 MG (Solu-MEDROL) VIAL ONE (08:42)
[2021-10-29] MEDS ORDERED: FAMOTIDINE 20MG/2ML IV (PEPCID) ONE (08:42)
[2021-10-29] MEDS ORDERED: FAMOTIDINE 20MG/2ML IV (PEPCID) IVP ONE (08:45)
[2021-10-29] MEDS ORDERED: methylPREDNISolone 125 MG (Solu-MEDROL) VIAL IVP ONE (08:45)
--- NOTE | 2021-10-29 08:58 | ED General ---
General Chief Complaint: Allergic Reaction Stated Complaint: ALLERGIC REACTION/SOA Nursing Triage Note: PT TO RM 5 WITH CC OF ALLERGIC REACTION TO MOUTH WASH. PT STATES MOUTH WASH USED AT 0730 AND TOOK BENADRYL AT 0730. PT HIVES AND RED FACE. PT NOT IN DISTRESS AT THIS TIME. A&OX4 History of Present Illness Date Seen by Provider: Oct 29, 2021 Time Seen by Provider: 08:40 Initial Comments Patient is a 46yo male with a history of multiple allergies complains of "hives" this morning after taking a little bit of Children's "ACT" mouthwash. He has never had it before and was told by his dentisit it should be safe for him.. He did have some benadryl [employer]ATION. Complaints of itching and a hoarse voice/sore throat. He has had some throat swelling in the past - denies ever being told he had specifically "Angioedema". No family history of mouth swelling. He is not on Lisinopril - only metformin for DM. No recent illness. Is not actually SOB. ALl other ROS reviewed and negative except as stated. Timing/Duration: 1 Hour Severity: Moderate Associated Systoms: Other (rash, difficulty) Allergies and Home Medications Allergies Coded Allergies: calcium carbonate (Verified Allergy, Intermediate, HIVES, 05/03/12) Cephalexin Monohydrate (Verified Allergy, Unknown, 06/08/20) Penicillins (Verified Allergy, Unknown, 06/08/20) acetaminophen (Verified Allergy, Unknown, 06/08/20) azithromycin (Verified Allergy, Unknown, 06/08/20) benzocaine (Verified Allergy, Unknown, 06/08/20) lidocaine (Verified Allergy, Unknown, 06/08/20) mupirocin (Verified Allergy, Unknown, 06/08/20) mupirocin calcium (Verified Allergy, Unknown, 06/08/20) Patient Home Medication List Home Medication List Reviewed: Yes Epinephrine (Epipen) 0.3 Mg/0.3 Ml Auto.injct, 0.3 MG IJ PRN PRN for Allergic reaction - severe Prescribed by: CAMERON DOMÍNGUEZ on 10/29/21 1051 Ibuprofen (Motrin) 800 Mg Tab, 800 MG PO TID PRN, (Reported) Entered as Reported by: SMILEY HURST on 10/10/12 6065 Levofloxacin (Levofloxacin) 750 Mg Tablet, 750 MG PO DAILY Prescribed by: WALESKA MIXON on 06/12/20 1051 Metformin HCl (Metformin HCl) 1,000 Mg Tablet, 1,000 MG PO BID WITH MEALS Prescribed by: WALESKA MIXON on 06/12/20 1056 Prednisone (Prednisone) 50 Mg Tab, 50 MG PO DAILY Prescribed by: CAMERON DOMÍNGUEZ on 10/29/21 1051 Review of Systems Review of Systems Constitutional: see HPI EENTM: throat swelling Respiratory: no symptoms reported Cardiovascular: no symptoms reported Gastrointestinal: no symptoms reported Genitourinary: no symptoms reported Musculoskeletal: no symptoms reported Skin: pruritus, rash Psychiatric/Neurological: No Symptoms Reported All Other Systems Reviewed Negative Unless Noted: Yes Past Mmnmiib-Svjkcm-Vnocgn Hx Seasonal Allergies Seasonal Allergies: No Past Medical History Surgeries: Yes Orthopedic, Vasectomy Respiratory: Yes Pneumonia, Chronic Bronchitis Currently Using CPAP: No Currently Using BIPAP: No Cardiac: No Reproductive Disorders: No Sexually Transmitted Disease: No HIV/AIDS: No Genitourinary: No Gastrointestinal: No Musculoskeletal: No Endocrine: No Diabetes, Non-Insulin dep HEENT: No Cancer: No Psychosocial: No Integumentary: No Blood Disorders: No Adverse Reaction/Blood Tranf: No Family Medical History Diabetes Physical Exam Vital Signs Vital Signs - First Documented 10/29/21 08:40 Temp 36.6 Pulse 79 Resp 22 B/P (MAP) 214/88 (130) Pulse Ox 97 O2 Delivery Room Air Capillary Refill : Less Than 3 Seconds Height, Weight, BMI Height: '" Weight: 360lbs. oz. 163.090305ge; 44.00 BMI Method:Stated General Appearance: WD/WN, Anxious (tremoring) Eyes: Bilateral Eye Normal Inspection, Bilateral Eye PERRL, Bilateral Eye EOMI HEENT: PERRL/EOMI, Normal ENT Inspection, Moist Mucous Membranes, Other (palatal "boggy" edema/uvula is edematous and erythematous. no tonsillar enlargement or exudate.) Neck: Normal Inspection, Non Tender, Supple Respiratory: Lungs Clear, Normal Breath Sounds, No Accessory Muscle Use, No Respiratory Distress Cardiovascular: Regular Rate, Rhythm, Normal Peripheral Pulses Gastrointestinal: Normal Bowel Sounds, Non Tender, Soft Extremity: Normal Inspection, Normal Range of Motion Neurologic/Psychiatric: Alert, Oriented x3, No Motor/Sensory Deficits, Normal M ood/Affect, open winder II-XII Norm as Tested, Other (anxious) Skin: Warm/Dry, Rash (diffuse palpable hive-like rash chest/abdomen/LE's) Progress/Results/Core Measures Suspected Sepsis SIRS Temperature: Pulse: 79 Respiratory Rate: 22 Blood Pressure 214 /88 Mean: 130 Results/Orders Lab Results Laboratory Tests Test 10/29/21 08:47 Range/Units Glucometer 219 H 70-110 MG/DL My Orders Orders - CAMERON DOMÍNGUEZ MD Methylprednisolone Sod Succ (Solu-Medrol (10/29/21 08:45) Famotidine Injection (Pepcid Injection) (10/29/21 08:45) Methylprednisolone Sod Succ (Solu-Medrol (10/29/21 08:42) Famotidine Injection (Pepcid Injection) (10/29/21 08:42) Medications Given in ED Vital Signs/I&O 10/29/21 10/29/21 08:40 11:14 Temp 36.6 Pulse 79 80 Resp 22 22 B/P (MAP) 214/88 (130) 138/78 Pulse Ox 97 98 O2 Delivery Room Air Room Air Capillary Refill : Less Than 3 Seconds Blood Pressure Mean: 130 Point of Care Testing Finger Stick Blood Glucose: 219 Progress Note : Time: 10:42 Progress Note Patient is feeling much better after pepcid, solumedrol and benadryl. His voice is much better. WE talked about an epi pen for home, prednisone for 5 days with pepcid. ongoing benadryl for at least the next 24 hours. Return precautions provided. All questions are sought and answered. I strongly encouraged him to follow up with PCP and be referred to an instructor extension work. Critical Care Note Critical Care Start Time: 08:40 Stop Time: 10:52 Total Time (minutes) Critical care time 45 min in the evaluation and management of this patient with Angioedema. Time includes intial evaluation of the patient, medication administration, continuous VS monitoring and serial re-evaluations. Departure Impression Primary Impression: Angioedema with urticaria due to drug Disposition: 01 HOME, SELF-CARE Condition: Improved Departure-Patient Inst. Decision time for Depature: 10:47 [facility]: [facility] [place] NO,LOCAL PHYSICIAN (PCP) Primary Care Physician Patient Instructions: Angioedema Add. Discharge Instructions: Take the prednisone daily for 5 days - first dose this afternoon. Check your blood sugars a little more often while taking the prednisone, as the steroid can increase your sugars. Watch your Sugar intake. Take generic over the counter Pepcid, 20mg twice a day for 5 days as well. Benadryl 50mg, every 6 hours for at least the next 24 hours. I have prescribed you an epi pen. If you have another reaction, especially with SOB or airway issues, use the epi pen as directed and call 911. Return to the ER for any concern of worsening swelling in your throat, difficulty breathing or swallowing or any other emergent, concerning symptoms. Scripts Epinephrine (Epipen) 0.3 Mg/0.3 Ml Auto.injct 0.3 MG IJ PRN PRN for Allergic reaction - severe, #1 ML Prov: CAMERON DOMÍNGUEZ MD 10/29/21 Prednisone (Prednisone) 50 Mg Tab 50 MG PO DAILY, #5 TAB Prov: CMAERON DOMÍNGUEZ MD 10/29/21 Copy Copies To 1: CHARLI ZAVALA KATHRYN M MD Oct 29, 2021 08:58
[2021-10-29] MEDS ORDERED: PRD50T PO (10:51)
[2021-10-29] MEDS ORDERED: EPIN0.3P2 IJ (10:51)
[2021-10-29 11:14] VITALS: BP 138/78
== END 2021-10-29 11:14 | disposition home or self-care (01) ==
LOC: EDUNIT# 08:36 → ER 08:38
DX: T78.3XXA Angioneurotic edema, initial encounter (principal); E11.9 Type 2 diabetes mellitus without complications; Z28.310 Unvaccinated for COVID-19; Z79.84 Long term (current) use of oral hypoglycemic drugs
CPT/HCPCS: 82947